=== PATIENT | female | born 1960 | race Caucasian/White ===

== ENCOUNTER 2018-06-24 04:57 | Emergency (ER) | payer OTHER ==
[2018-06-24 05:41] LABS: APPEARANCE,URINE Clear (CLEAR); BILIRUBIN,URINE Negative (NEGATIVE); COLOR,URINE Yellow (YELLOW); GLUCOSE, URINE (UA) Negative (NEGATIVE); KETONES,URINE Trace mg/dL (NEGATIVE); LEUKOCYTE ESTERASE ,URINE Moderate (NEGATIVE); NITRATE,URINE Negative (NEGATIVE); OCCULT BLOOD,URINE Negative (NEGATIVE); PROTEIN,URINE Negative (NEGATIVE)
[2018-06-24 05:48] LABS: AMPHET/METH SCREEN,URINE NEGATIVE (NEGATIVE); BACTERIA,URINE Rare /HPF (None Seen); BARBITURATE SCREEN, URINE NEGATIVE (NEGATIVE); BENZODIAZEPINES SCREEN,URINE NEGATIVE (NEGATIVE); CANNABINOID SCREEN,URINE POSITIVE (NEGATIVE); COCAINE SCREEN,URINE NEGATIVE (NEGATIVE); MUCUS,URINE Moderate LPF (None Seen); OPIATE SCREEN,URINE NEGATIVE (NEGATIVE); PHENCYCLIDINE SCREEN,URINE NEGATIVE (NEGATIVE); RBC,URINE 0-1 /HPF (0-1); SQUAMOUS EPITHELIAL CELL,UR Moderate /HPF (0-2)
[2018-06-24 05:56] LABS: EOSINOPHILS % (AUTO) 1.1 % (0.0-8.0); LYMPHOCYTES % (AUTO) 45.7 % (21.0-51.0); MEAN CORPUSCULAR HEMOGLOBIN 30.7 pg (27.0-33.0); MEAN CORPUSCULAR HGB CONC 33.3 g/dL (32.0-36.0); MEAN CORPUSCULAR VOLUME 92.1 fL (79-99); MONOCYTES % (AUTO) 7.5 % (3.0-13.0); NEUTROPHILS % (AUTO) 44.7 % (40.0-77.0); PLATELET COUNT (AUTO) 326 K/uL (130-400); RED BLOOD CELL COUNT(AUTO) 4.89 MIL/uL (4.00-5.50); RED CELL DISTRIBUTION WIDTH 14.3 % (11.0-15.5); WHITE BLOOD COUNT (AUTO) 7.5 K/uL (4.8-10.8)
[2018-06-24 06:06] LABS: CREATININE 0.8 mg/dL (0.5-1.5); POTASSIUM 3.6 mmol/L (3.5-5.1)
[2018-06-24 06:11] LABS: ALBUMIN 4.4 g/dL (3.5-5.0); BILIRUBIN,TOTAL 0.4 mg/dL (0.2-1.0); TOTAL PROTEIN, SERUM 8.3 g/dL (6.0-8.3)
== END 2018-06-24 06:14 | disposition left against medical advice (07) ==
LOC: EDH 04:57
DX: G43.909 Migraine, unspecified, not intractable, without status migrainosus (principal); R00.0 Tachycardia, unspecified; M54.40 Lumbago with sciatica, unspecified side; F43.10 Post-traumatic stress disorder, unspecified; Z76.5 Malingerer [conscious simulation]; Z88.6 Allergy status to analgesic agent; Z88.2 Allergy status to sulfonamides; Z88.8 Allergy status to other drugs, medicaments and biological substances
CPT/HCPCS: 36415; 80053; 80305; 81001; 85025; 93005

== ENCOUNTER → 2021-04-06 | Day surgery (SDC) | payer OTHER ==
[2021-04-05 09:23] LABS: BASOPHILS % (AUTO) 0.9 % (0.0-5.0); EOSINOPHILS % (AUTO) 1.3 % (0.0-8.0); HEMATOCRIT 44.5 % (36-48); LYMPHOCYTES % (AUTO) 42.3 % (21.0-51.0); MEAN CORPUSCULAR HEMOGLOBIN 30.2 pg (27.0-33.0); MEAN CORPUSCULAR HGB CONC 32.8 g/dL (32.0-36.0); MEAN CORPUSCULAR VOLUME 92.1 fL (79-99); MONOCYTES % (AUTO) 7.1 % (3.0-13.0); NEUTROPHILS % (AUTO) 48.1 % (40.0-77.0); PLATELET COUNT (AUTO) 308 K/uL (130-400); RED BLOOD CELL COUNT(AUTO) 4.83 MIL/uL (4.00-5.50); RED CELL DISTRIBUTION WIDTH 13.5 % (11.0-15.5); WHITE BLOOD COUNT (AUTO) 10.4 K/uL (4.8-10.8)
[2021-04-05 09:31] LABS: CREATININE 0.6 mg/dL (0.5-1.5); POTASSIUM 4.2 mmol/L (3.5-5.1)
[2021-04-05 16:58] VITALS: BP 128/87
[~2021-04-06] VITALS: Ht 160 cm; Wt 50.9 kg
[2021-04-06] VITALS (24 sets, daily range): BP systolic 102–156; BP diastolic 68–90
[~2021-04-06] MED LIST: CEFAZOLIN SODIUM 1 GM VIAL ONE; DEXAMETHASONE SOD PHOSPHATE 10MG/ML 1ML VIAL ONE; EPINEPHRINE 1 MG/ML 30ML VIAL IJ ONE; FENTANYL CITRATE PF 50 MCG/1 ML 2ML VIAL ONE; GLYCOPYRROLATE 1 MG/5 ML SYRINGE ONE; IPRA4AER IH; LACTATED RINGERS 1000ML 1,000 ML IV ONE; LIDOCAINE PF 100MG/5ML (2%) SYRINGE 5ML ONE; MEPERIDINE-PF 25 MG/ML SYG ONE; MIDAZOLAM HCL 1 MG/ML 2ML VIAL ONE; NEOSTIGMINE 5MG/5ML SYR IV ONE; ONDANSETRON 4MG INJ ONE; PROPOFOL 10 MG/ML 20ML VIAL IV ONE; ROCURONIUM 10MG/1ML SYR 10 MG/ML ML ONE; SUCCINYLCHOLINE CHLORIDE 20 MG/ML 10 ML VIAL ONE
[2021-04-06] MEDS: CEFAZOLIN SODIUM 1 GM VIAL IVP SCH ×2 (06:00→12:35)
== END | disposition home or self-care (01) ==
LOC: DAH 08:41
PROVIDERS: ATTEND Orthopaedic Surgery
DX: M75.101 Unspecified rotator cuff tear or rupture of right shoulder, not specified as traumatic (principal); Z20.822 Contact with and (suspected) exposure to COVID-19; M25.811 Other specified joint disorders, right shoulder; Z98.890 Other specified postprocedural states; K21.9 Gastro-esophageal reflux disease without esophagitis; J44.9 Chronic obstructive pulmonary disease, unspecified; G47.00 Insomnia, unspecified; F32.9 Major depressive disorder, single episode, unspecified; G43.909 Migraine, unspecified, not intractable, without status migrainosus; Z90.49 Acquired absence of other specified parts of digestive tract; Z88.6 Allergy status to analgesic agent; Z88.8 Allergy status to other drugs, medicaments and biological substances; Z79.899 Other long term (current) drug therapy
CPT/HCPCS: 29824; 29826; 29827; 36415; 64415; 76942; 80048; 85025; 87635; A4215; A4221; A4222; A4223; A4565; A4600; A4649 ×5; A4663; A4930; A6204; C1713 ×2; C9803; G0168; J0171; J0330 ×2; J0690 ×2; J1100; J2001 ×2; J2175; J2250; J2405 ×3; J2704; J2710; J3010; J3490; J7120 ×2

== ENCOUNTER → 2021-11-01 | Outpatient (CLI) | payer OTHER ==
[~2021-11-01] MED LIST changes: -CEFAZOLIN SODIUM 1 GM VIAL ONE; -DEXAMETHASONE SOD PHOSPHATE 10MG/ML 1ML VIAL ONE; -EPINEPHRINE 1 MG/ML 30ML VIAL IJ ONE; -FENTANYL CITRATE PF 50 MCG/1 ML 2ML VIAL ONE; -GLYCOPYRROLATE 1 MG/5 ML SYRINGE ONE; -LACTATED RINGERS 1000ML 1,000 ML IV ONE; -LIDOCAINE PF 100MG/5ML (2%) SYRINGE 5ML ONE; -MEPERIDINE-PF 25 MG/ML SYG ONE; -MIDAZOLAM HCL 1 MG/ML 2ML VIAL ONE; -NEOSTIGMINE 5MG/5ML SYR IV ONE; -ONDANSETRON 4MG INJ ONE; -PROPOFOL 10 MG/ML 20ML VIAL IV ONE; -ROCURONIUM 10MG/1ML SYR 10 MG/ML ML ONE; -SUCCINYLCHOLINE CHLORIDE 20 MG/ML 10 ML VIAL ONE
== END | disposition home or self-care (01) ==
LOC: RAH 09:22
PROVIDERS: ATTEND Internal Medicine
DX: H51.0 Palsy (spasm) of conjugate gaze (principal); G93.89 Other specified disorders of brain
CPT/HCPCS: 70551

== ENCOUNTER → 2023-07-24 | Outpatient (CLI) | payer OTHER | END | disposition home or self-care (01) | LOC: RAH 10:12 | PROVIDERS: ATTEND Internal Medicine | DX: M25.511 Pain in right shoulder (principal) | CPT/HCPCS: 73030 ==

== ENCOUNTER → 2023-09-05 | Outpatient (CLI) | payer OTHER | END | disposition home or self-care (01) | LOC: RAH 13:54 | PROVIDERS: ATTEND Student in an Organized Health Care Education/Training Program | DX: S43.431A Superior glenoid labrum lesion of right shoulder, initial encounter (principal); M75.121 Complete rotator cuff tear or rupture of right shoulder, not specified as traumatic; X58.XXXA Exposure to other specified factors, initial encounter; Y93.89 Activity, other specified; Y92.89 Other specified places as the place of occurrence of the external cause; Y99.8 Other external cause status | CPT/HCPCS: 73221 ==

== ENCOUNTER → 2023-09-23 | Outpatient (CLI) | payer OTHER | END | disposition home or self-care (01) | LOC: RAH 14:31 | PROVIDERS: ATTEND Internal Medicine | DX: M47.26 Other spondylosis with radiculopathy, lumbar region (principal) | CPT/HCPCS: 72148 ==

== ENCOUNTER 2023-10-18 05:50 | Observation (INO) | payer OTHER ==
[2023-10-14 09:42] VITALS: BP 112/65; PULSE 59; RESP 15
[2023-10-14 09:49] LABS: BASOPHILS # (AUTO) 0.05 K/uL (0.00-0.20); BASOPHILS % (AUTO) 0.7 % (0.0-5.0); EOSINOPHILS # (AUTO) 0.11 K/uL (0.00-0.70); EOSINOPHILS % (AUTO) 1.5 % (0.0-8.0); HEMATOCRIT 41.7 % (36-48); IMMATURE GRANULOCYTE ABSOLUTE 0.01 K/uL (0-1); LYMPHOCYTES # (AUTO) 3.8 K/uL (1.0-4.8); LYMPHOCYTES % (AUTO) 52.9 % (21.0-51.0); MEAN CORPUSCULAR HEMOGLOBIN 29.9 pg (27.0-33.0); MEAN CORPUSCULAR HGB CONC 32.4 g/dL (32.0-36.0); MEAN CORPUSCULAR VOLUME 92.5 fL (79-99); MONOCYTES # (AUTO) 0.6 K/uL (0.1-1.0); NEUTROPHILS # (AUTO) 2.6 K/uL (1.8-7.7); NEUTROPHILS % (AUTO) 36.8 % (40.0-77.0); PLATELET COUNT (AUTO) 257 K/uL (130-400); RED BLOOD CELL COUNT(AUTO) 4.51 MIL/uL (4.00-5.50); RED CELL DISTRIBUTION WIDTH 13.6 % (11.0-15.5); WHITE BLOOD COUNT (AUTO) 7.1 K/uL (4.8-10.8)
[2023-10-14 10:09] LABS: INR 0.99 (0.85-1.15); PROTHROMBIN TIME 11.5 SEC (9.6-11.6)
[2023-10-14 10:11] LABS: PARTIAL THROMBOPLASTIN TIME 31.7 SEC (26.3-35.5)
[2023-10-18] VITALS (27 sets, daily range): BP systolic 113–145; BP diastolic 65–82; PULSE 55–86; RESP 12–20; O2SAT 96
[~2023-10-18] VITALS: Ht 160 cm; Wt 52.7 kg
[~2023-10-18 05:50] MED LIST changes: +ACYC400T20 PO; +DEXT15DR29 OU; +EREN70AU SQ; +FLUT16H NASAL; +GABA300C PO; +HYDR4TAB56 PO; -IPRA4AER IH; +MONT-39 PO; +OMEP40CA21 PO; +PROM25TA7 PO; +RIZA10TA98 PO
[2023-10-18] MEDS: CEFAZOLIN SODIUM 2 GM VIAL ONE (06:18)
[2023-10-18] MEDS ORDERED: FENTANYL CITRATE PF 50 MCG/1 ML 5ML AMP IV ONE (06:47)
[2023-10-18] MEDS ORDERED: PROPOFOL 10 MG/ML 20ML VIAL IV ONE (06:47)
[2023-10-18] MEDS ORDERED: MIDAZOLAM HCL 1 MG/ML 2ML VIAL ONE (06:47)
[2023-10-18] MEDS ORDERED: ROCURONIUM BROMIDE 10MG/1ML 5ML VL ONE (07:02)
[2023-10-18] MEDS ORDERED: ROPIVACAINE 0.5% 5MG/ML 30ML ONE (07:03)
[2023-10-18] MEDS ORDERED: ONDANSETRON 4MG INJ ONE (07:05)
[2023-10-18] MEDS ORDERED: DEXAMETHASONE SOD PHOSPHATE 10MG/ML 1ML VIAL ONE (07:09)
[2023-10-18] MEDS: CEFAZOLIN SODIUM 2 GM VIAL IVPB ONE (07:48)
[2023-10-18] MEDS ORDERED: PHENYLEPHRINE HCL 10 MG/ML 1ML VIAL IV ONE (08:20)
[2023-10-18] MEDS ORDERED: GLYCOPYRROLATE 0.2 MG/ML 5 ML VIAL ONE (08:21)
[2023-10-18] MEDS: LACTATED RINGERS 1000ML 1,000 ML IV ONE (09:06)
[2023-10-18] MEDS: EPINEPHRINE PF 1MG (1:1,000) 1 MG/ML AMP ONE (09:24)
[2023-10-18] MEDS ORDERED: NEOSTIGMINE METHYLSULFATE 1MG/ML IV ONE (09:47)
[2023-10-18] MEDS ORDERED: FENTANYL CITRATE PF 50 MCG/1 ML 2ML VIAL ONE (09:53)
[2023-10-18] MEDS ORDERED: DiphenhydrAMINE HCL 50 MG/ML VIAL IVP PRN (10:30)
[2023-10-18] MEDS ORDERED: POTASSIUM CHLORIDE 10% ELIXIR 20 MEQ/15 ML UDCUP PO PRN (10:30)
[2023-10-18] MEDS ORDERED: ONDANSETRON 4MG INJ IVP PRN (10:30)
[2023-10-18] MEDS: CYCLOBENZAPRINE HCL 10 MG TABLET PO SCH (10:30)
[2023-10-18] MEDS ORDERED: KETOROLAC 15MG/ML VIAL (15MG/ML) IV PRN (10:30)
[2023-10-18] MEDS: 0.9%NACL 1000ML 1,000 ML IV SCH (10:30)
[2023-10-18] MEDS ORDERED: CALCIUM CARB 500MG PO PRN (10:30)
[2023-10-18] MEDS ORDERED: POTASSIUM CHLORIDE 20MEQ/100ML 100 ML IV PRN (10:30)
[2023-10-18] MEDS ORDERED: FE FUMARATE/FA/MV, MIN COMB#15 1 TAB PO PRN (10:30)
[2023-10-18] MEDS: KETOROLAC 15MG/ML VIAL (15MG/ML) IV SCH (11:12)
[2023-10-18] MEDS: KETOROLAC 15MG/ML VIAL (15MG/ML) ONE (11:25)
[2023-10-18] MEDS: GABAPENTIN 100 MG CAPSULE PO SCH (14:00)
[2023-10-18] MEDS ORDERED: DEXTRAN OU PRN (15:00)
[2023-10-18] MEDS ORDERED: HYPROMELLOSE OU PRN (15:00)
[2023-10-18] MEDS ORDERED: GLYCERIN OU PRN (15:00)
[2023-10-18] MEDS ORDERED: HYDROMORPHONE HCL 4 MG PO PRN (15:00)
[2023-10-18] MEDS ORDERED: RIZATRIPTAN BENZOATE 10 MG PO PRN (15:00)
[2023-10-18] MEDS ORDERED: HYDROMORPHONE HCL 2 MG TAB PO PRN (16:00)
[2023-10-18] MEDS: CEFAZOLIN SODIUM 2 GM VIAL IVPB SCH (16:26)
[2023-10-18] MEDS: HYDROMORPHONE HCL 2 MG TAB PO PRN (16:27)
[2023-10-18] MEDS: PROMETHAZINE HCL 25 MG TABLET PO SCH (20:32)
[2023-10-18] MEDS: DOCUSATE SODIUM 100 MG CAP PO SCH (20:32)
[2023-10-18] MEDS: GABAPENTIN 300 MG CAPSULE PO SCH (20:32)
[2023-10-19] VITALS: BP 125/71; PULSE 60; RESP 20
[2023-10-19 04:00] VITALS: BP 109/66; PULSE 70; RESP 18
[2023-10-19 06:03] LABS: HEMATOCRIT 36.4 % (36-48); MEAN CORPUSCULAR HEMOGLOBIN 30.6 pg (27.0-33.0); MEAN CORPUSCULAR HGB CONC 33.5 g/dL (32.0-36.0); MEAN CORPUSCULAR VOLUME 91.2 fL (79-99); RED BLOOD CELL COUNT(AUTO) 3.99 MIL/uL (4.00-5.50); RED CELL DISTRIBUTION WIDTH 13.5 % (11.0-15.5); WHITE BLOOD COUNT (AUTO) 12.4 K/uL (4.8-10.8)
[2023-10-19 06:27] LABS: CREATININE 0.6 mg/dL (0.5-1.5); POTASSIUM 3.2 mmol/L (3.5-5.1)
[2023-10-19 07:50] VITALS: BP 110/59; PULSE 60; RESP 17
[2023-10-19] MEDS: ACYCLOVIR 200 MG CAPSULE PO SCH (08:22)
[2023-10-19] MEDS: PANTOPRAZOLE 40 MG TAB DR PO SCH (08:23)
[2023-10-19] MEDS: MONTELUKAST SODIUM 10 MG TAB PO SCH (08:23)
[2023-10-19] MEDS: KCL 20 MEQ ERTAB PO PRN (08:24)
[2023-10-19 08:30] VITALS: O2SAT 98
[2023-10-19] MEDS: POLYETHYLENE GLYCOL 3350 17 GM POWD.PACK PO SCH (08:39)
[2023-10-19] MEDS: FLUTICASONE PROPIONATE 50MCG/SPRAY 16 GM BOTTLE NS SCH (10:33)
[2023-10-19 11:14] VITALS: BP 124/84; PULSE 66; RESP 18
[2023-10-19] MEDS ORDERED: KETOROLAC 15MG/ML VIAL (15MG/ML) IV PRN (12:00)
[2023-10-21] MEDS ORDERED: BISACODYL 10 MG SUPP.RECT RC PRN (10:30)
== END 2023-10-19 14:30 | disposition home or self-care (01) ==
LOC: DAH 05:50 → DAHIP 05:51 → 4CH 11:45
PROVIDERS: ADMIT Student in an Organized Health Care Education/Training Program; ATTEND Student in an Organized Health Care Education/Training Program
DX: M75.121 Complete rotator cuff tear or rupture of right shoulder, not specified as traumatic (principal); M75.41 Impingement syndrome of right shoulder; M75.21 Bicipital tendinitis, right shoulder; G89.18 Other acute postprocedural pain; J44.9 Chronic obstructive pulmonary disease, unspecified; K21.9 Gastro-esophageal reflux disease without esophagitis; F32.A Depression, unspecified; G43.909 Migraine, unspecified, not intractable, without status migrainosus; Z86.2 Personal history of diseases of the blood and blood-forming organs and certain disorders involving the immune mechanism; Z88.5 Allergy status to narcotic agent; Z88.8 Allergy status to other drugs, medicaments and biological substances
CPT/HCPCS: 82040; 85025; 85610; 85730; 84134; 36415 ×2; 29827; 29826; 96376; 96365; 96366; 96375; 64415; 97161; 97530 ×5; 80048; 85027; 97116 ×2; C1713; G0378 ×26; A4663; J7030; A4452; J7120; J3010 ×2; J1100; Q0169 ×2; J3490 ×2; J0171; J2250; J2704; J2405; J2710; J2795; J1885 ×2; J2371; J0690 ×4; A6223; A4649 ×2; A4930; A5120; A4215; A4223; A4222; A4221; A4600

== ENCOUNTER → 2024-02-10 | Outpatient (CLI) | payer OTHER | END | disposition home or self-care (01) | LOC: RAH 14:18 | PROVIDERS: ATTEND Student in an Organized Health Care Education/Training Program | DX: Z98.890 Other specified postprocedural states (principal) | CPT/HCPCS: 73221 ==